=== PATIENT | male | born 1985 | race Caucasian/White ===

== ENCOUNTER 2017-11-24 09:58 | Emergency (ER) | payer OTHER ==
[2017-11-24] MEDS ORDERED: SODIUM CHLORIDE 0.9% 1,000 ML IV STA (10:13)
[2017-11-24] MEDS ORDERED: ONDANSETRON 4 MG/2 ML VIAL IVP STA (10:13)
[2017-11-24 10:51] LABS: BASOPHILS % (AUTO) 0.3 %; EOSINOPHILS % (AUTO) 0.4 %; HGB - HEMOGLOBIN 16.3 g/dL (14.0-18.0); LYMPHOCYTES # (AUTO) 1.8 10^3/uL (1.5-3.5); LYMPHOCYTES % (AUTO) 15.2 %; MEAN CORPUSCULAR HEMOGLOBIN 31.7 pg (27.0-31.0); MEAN CORPUSCULAR HGB CONC 34.7 g/dL (32.0-36.0); MEAN CORPUSCULAR VOLUME 91.3 fL (80.0-94.0); MEAN PLATELET VOLUME 7.7 fL (7.4-11.4); MONOCYTES # (AUTO) 0.9 10^3/uL (0.0-1.0); MONOCYTES % (AUTO) 7.6 %; NEUTROPHILS # (AUTO) 8.9 10^3/uL (1.5-6.6); NEUTROPHILS % (AUTO) 76.5 %; PLT - PLATELET COUNT 261 10^3/uL (130-450); RED BLOOD COUNT 5.13 10^6/uL (4.70-6.10); RED CELL DISTRIBUTION WIDTH 13.5 % (12.0-15.0); WHITE BLOOD COUNT 11.6 x10^3/uL (4.8-10.8)
[2017-11-24] MEDS ORDERED: IOPAMIDOL-300 100 ML VIAL ONE (10:56)
[2017-11-24 11:04] LABS: ALBUMIN 4.9 g/dL (3.2-5.5); ALBUMIN/GLOBULIN RATIO 1.4 (1.0-2.2); BILIRUBIN,TOTAL 1.5 mg/dL (0.2-1.0); CALCIUM 9.8 mg/dL (8.5-10.3); CREATININE 1.1 mg/dL (0.6-1.2); TOTAL PROTEIN 8.3 g/dL (6.7-8.2)
[2017-11-24] MEDS ORDERED: IOPAMIDOL-300 100 ML VIAL IVP ONE (11:19)
[2017-11-24 11:38] LABS: BILIRUBIN,URINE NEGATIVE (NEGATIVE); CLARITY,URINE CLEAR (CLEAR); GLUCOSE, URINE (UA) NEGATIVE (NEGATIVE); KETONES,URINE (UA) NEGATIVE (NEGATIVE); LEUKOCYTE ESTERASE, URINE NEGATIVE (NEGATIVE); NITRITE,URINE NEGATIVE (NEGATIVE); OCCULT BLOOD,URINE NEGATIVE (NEGATIVE); PROTEIN,URINE NEGATIVE (NEGATIVE); UROBILINOGEN,URINE 0.2 (NORMAL) E.U./dL (NORMAL)
--- NOTE | 2017-11-24 11:59 | CT Report ---
Reason: rlq pain, nausea since yesterday Procedure Date: 11/24/2017 Accession Number: [id number] / [id number] Procedure: CT - Abdomen/Pelvis W/ CPT Code: FULL RESULT: EXAM: CT ABDOMEN AND PELVIS EXAM DATE: 11/24/2017 11:26 AM. CLINICAL HISTORY: Rlq pain, nausea since yesterday. COMPARISONS: 100 cc Isovue-300. TECHNIQUE: Routine helical CT imaging was performed through the abdomen and pelvis. IV contrast: CE. Enteric contrast: No. Reconstructions: Coronal and sagittal. In accordance with CT protocol optimization, one or more of the following dose reduction techniques were utilized for this exam: automated exposure control, adjustment of mA and/or KV based on patient size, or use of iterative reconstructive technique. FINDINGS: Lung Bases: Unremarkable. Liver: Normal. No masses. Gallbladder/Bile Ducts: Unremarkable. Spleen: Normal. Pancreas: Normal. Adrenal Glands: Normal. Kidneys: Normal. No masses or hydronephrosis. Peritoneal Cavity/Bowel: No free air or free fluid. The appendix is well visualized and normal. There is 1.2 x 1.2 cm air and fluid containing rounded focus which does appear to be arising from a small bowel loop within the lateral right abdomen, anterior to the ascending colon (3/50-52 and coronal image 21). There is mild surrounding hazy opacity compatible with inflammation. This is most consistent with small bowel diverticulitis. The possibility of the cystic focus representing a small area of focal perforation or abscess is significantly less likely. Other process such as a sending colonic diverticulitis or epiploic appendagitis is considered significantly less likely. There are multiple small right lower quadrant lymph nodes with the largest being borderline enlarged, short axis 0 0.8 cm. Pelvic Organs: Normal. The bladder and visualized pelvic organs are within normal limits. Vasculature: No aneurysms or other significant abnormality. Bones: No significant abnormality. Other: None. IMPRESSION: 1. Findings most consistent with acute diverticulitis of the small bowel within the lateral right abdomen. No rancho abscess or free air. 2. Borderline right lower quadrant adenopathy. 3. Normal appendix. RADIA
[2017-11-24] MEDS ORDERED: MORPHINE 2 MG/ML CARPUJECT IVP STA (12:06)
--- NOTE | 2017-11-24 13:35 | ED Physician Documentation ---
PD HPI ABD PAIN - Stated complaint Stated Complaint: ABD PX - Chief complaint Chief Complaint: Abd Pain - History obtained from History obtained from: Patient - History of Present Illness Timing - onset: Yesterday Timing - duration: Days (1) Timing - details: Gradual onset, Still present Pain level max: 7 Pain level now: 7 Quality: Cramping, Sharp Location: RLQ Improved by: Other (NOTHING) Worsened by: Other (NOTHING) Associated symptoms: Nausea. No: Fever, Vomiting, Diarrhea, Constipation, Melena, Dysuria, Chest pain, Dizzy, Near syncope / syncope, Loss of appetite, Testicular pain Similar symptoms before: Has not had sx before Recently seen: Not recently seen - Additional information Additional information: Pt states was having abdominal pain on his left lower side but when examined he stated his pain is in the RLQ. States with nausea but no vomiting. Denies any fever, diarrhea or constipation. 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 He had a turkey sandwich and soup prior to his pain. Review of Systems Ten Systems: 10 systems reviewed and negative Constitutional: reports: Chills. denies: Fever Nose: denies: Rhinorrhea / runny nose Cardiac: denies: Chest pain / pressure Respiratory: denies: Dyspnea GI: reports: Abdominal Pain, Nausea. denies: Abdominal Swelling, Vomiting, Constipation, Diarrhea : denies: Dysuria Musculoskeletal: denies: Back pain PD PAST MEDICAL HISTORY - Past Medical History Past Medical History: No - Past Surgical History Past Surgical History: No - Present Medications Home Medications: Ambulatory Orders Medication Instructions Recorded Confirmed Hydrocodone/Acetaminophen 1 - 2 each PO Q6H PRN #14 tablet 11/24/17 [Hydrocodon-Acetaminophen 5-325] Ibuprofen [Motrin] 800 mg PO Q8H PRN #30 tablet 11/24/17 Levofloxacin [Levaquin] 500 mg PO DAILY 7 Days #7 tablet 11/24/17 Metronidazole [Flagyl] 500 mg PO TID #21 tablet 11/24/17 - Allergies Allergies/Adverse Reactions: Allergies Allergy/AdvReac Type Severity Reaction Status Date / Time Penicillins Allergy Rash Verified 11/24/17 10:06 - Social History Does the pt smoke?: No Smoking Status: Never smoker Does the pt drink ETOH?: No Does the pt have substance abuse?: No - Immunizations Immunizations are current?: Yes PD ED PE NORMAL - Vitals Vital signs reviewed: Yes - General General: Alert and oriented X 3, No acute distress, Well developed/nourished - HEENT HEENT: Moist mucous membranes - Neck Neck: Supple, no meningeal sign - Cardiac Cardiac: RRR, No murmur - Respiratory Respiratory: Clear bilaterally - Abdomen Abdomen: Normal bowel sounds, Soft, Non distended, Other (RLQ abdominal tenderness to palpation. No rigidity, guarding nor rebound) - Derm Derm: Normal color, Warm and dry - Extremities Extremities: No deformity - Neuro Neuro: Alert and oriented X 3 - Psych Psych: Normal mood, Normal affect Results - Vitals Vitals: Vital Signs - 24 hr 11/24/17 11/24/17 10:03 13:55 Temperature 36.5 C Heart Rate 115 H 88 Respiratory 18 14 Rate Blood Pressure 139/84 H 124/84 H O2 Saturation 99 98 Oxygen O2 Source Room air - Labs Labs: Laboratory Tests 11/24/17 11/24/17 11/24/17 10:45 10:45 11:33 WBC 11.6 H RBC 5.13 Hgb 16.3 Hct 46.9 MCV 91.3 MCH 31.7 H MCHC 34.7 RDW 13.5 Plt Count 261 MPV 7.7 Neut # (Auto) 8.9 H Lymph # (Auto) 1.8 [place] # (Auto) 0.9 Eos # (Auto) 0.0 Baso # (Auto) 0.0 Absolute Nucleated RBC 0.00 Nucleated RBC % 0.0 Sodium 139 Potassium 3.9 Chloride 100 L Carbon Dioxide 27 Anion Gap 12.0 BUN 15 Creatinine 1.1 Estimated GFR (MDRD) 77 L Glucose 90 Calcium 9.8 Total Bilirubin 1.5 H AST 24 ALT 28 Alkaline Phosphatase 70 Total Protein 8.3 H Albumin 4.9 Globulin 3.4 Albumin/Globulin Ratio 1.4 Lipase 26 Urine Color YELLOW Urine Clarity CLEAR Urine pH 6.0 Ur Specific [place] 1.020 Urine Protein NEGATIVE Urine Glucose (UA) NEGATIVE Urine Ketones NEGATIVE Urine Occult Blood NEGATIVE Urine Nitrite NEGATIVE Urine Bilirubin NEGATIVE Urine Urobilinogen 0.2 (NORMAL) Ur Leukocyte Esterase NEGATIVE Ur Microscopic Review NOT INDICATED Urine Culture Comments NOT INDICATED PD MEDICAL DECISION MAKING - ED course Complexity details: re-evaluated patient (1155 Requesting for pain med. Denies any nausea. Will give morphine. 1225 informed of test results. Pt NAD, nontoxic looking. States he's able to eat. He wants to go home. Discussed his diet and antibiotics for his diverticulitis. Pt expressed understanding of outpt treatment plan.), considered differential (appendicitis, pancreatitis, diverticulitis), d/w patient, d/w family Departure - Departure Disposition: Home, Self Care Clinical Impression: Diverticulitis Abdominal pain Qualifiers: Abdominal location: right lower quadrant Qualified Code(s): R10.31 - Right lower quadrant pain Condition: Good Instructions: ED Diverticulitis Prescriptions: Hydrocodone/Acetaminophen [Hydrocodon-Acetaminophen 5-325] 1 - 2 each PO Q6H PRN #14 tablet PRN Reason: pain Ibuprofen [Motrin] 800 mg PO Q8H PRN #30 tablet PRN Reason: PAIN &/OR FEVER Levofloxacin [Levaquin] 500 mg PO DAILY 7 Days #7 tablet Metronidazole [Flagyl] 500 mg PO TID #21 tablet Comments: TAKE THE ANTIBIOTICS PRESCRIBED. ONLY TAKE THE NARCOTIC PAIN MED FOR SEVERE PAIN. MAINTAIN SAFETY NO ALCOHOL, NO DRIVING OR WORKING WITH MACHINERY WHILE TAKING NARCOTIC PAIN MED. PREVENT CONSTIPATION BY TAKING OTC STOOL SOFTENER, DRINKING LOTS OF WATER. DIET: CLEAR LIQUIDS, THEN B.R.A.T. DIET THEN BLAND DIET. FOLLOW UP W/ YOUR PCP FOR REEVALUATION AND REFERRAL TO A G.I. DOCTOR. IF WORSE RETURN TO THE E.R. Discharge Date/Time: 11/24/17 13:56
[2017-11-24 13:56] VITALS: BP 124/84
== END 2017-11-24 13:56 | disposition home or self-care (01) ==
LOC: ED 09:58
DX: K57.92 Diverticulitis of intestine, part unspecified, without perforation or abscess without bleeding (principal); R10.31 Right lower quadrant pain
CPT/HCPCS: 36415; 74177; 80053; 81003; 83690; 85025; 96361; 96374; 96375; 99283; 99284; Q9967; 81001; 87086